=== PATIENT | female | born 1995 | race African-American/Black ===

== ENCOUNTER 2017-11-21 20:22 | Emergency (ER) | payer SELFPAY ==
[~2017-11-21] VITALS: Ht 157.5 cm; Wt 50.0 kg
[2017-11-21 20:26] VITALS: BP 132/60; PULSE 94; RESP 14; TEMP 98.3; O2SAT 100
--- NOTE | 2017-11-21 20:50 | PD ---
HPI Chief Complaint: Medical Clearance Time Seen by Provider: 20:38 Travel History International Travel<30 days: No Contact w/Intl Traveler<30days: No Traveled to known affect area: No History of Present Illness HPI Patient comes to the emergency department complaining of possible . Patient states that she has had intermittent nausea over the past 2 weeks and feels that she may be . Denies anything making symptoms better or worse. Patient denies taking a home test. Patient reports her last period ended 2 days ago. Patient denies any pain anywhere, fevers, vaginal discharge, or other concerns. Patient states she does not use control which is why she is scared she may be . History Past Medical Histgory Medical History: Denies Significant Hx Tetanus Vaccination: < 5 Years LMP: 10/21/2017 Past Surgical History Surgical History: No Previous Surgery Social History Alcohol Use: Yes (socially) Tobacco Use: Yes Allergies-Medications (Allergen,Severity, Reaction): Coded Allergies: No Known Allergies (Unverified , 11/21/17) Review of Systems Except as stated in HPI: all other systems reviewed are Neg Physical Exam Narrative GENERAL: Well-developed, well nourished, in no acute distress, and non-ill appearing. SKIN: Focused skin assessment warm and dry. HEAD: Atraumatic. Normocephalic. EYES: Pupils equal and round. EOMI. No scleral icterus. No injection or drainage. ENT: No nasal bleeding or discharge. Mucous membranes pink and moist. NECK: Trachea midline. Supple. No nuclear rigidity. RESPIRATORY: No accessory muscle use. No respiratory distress. MUSCULOSKELETAL: No obvious deformities. No clubbing. No cyanosis. No edema. Full range of motion. NEUROLOGICAL: Awake and alert. No obvious cranial nerve deficits. Motor grossly within normal limits. Normal speech. PSYCHIATRIC: Appropriate mood and affect; insight and judgment normal. Data Data Last Documented VS Vital Signs Date Time Temp Pulse Resp B/P (MAP) Pulse Ox O2 Delivery O2 Flow Rate FiO2 11/21/17 20:26 98.3 94 14 132/60 (84) 100 MDM Medical Screen Exam Complete: Yes Emergency Medical Condition: No Narrative Course History and physical exam findings are not consistent with an emergent medical condition. She was given the option of receiving additional care, but has declined. Therefore the appropriate counseling recommendations were discussed with the patient and she was instructed to follow-up with her primary care physician as soon as possible for reevaluation. Patient was also informed of community resources from which she can obtain additional care. She is agreeable and verbalizes an understanding of the proposed plan. The patient states she will immediately return to the emergency department if her current complaints do not improve, new symptoms arise, or emergent condition develops. Patient ambulated out of the emergency department without difficulty. Primary Impression: Encounter for medical screening examination Disposition: [facility]-ED USE ONLY Condition: Stable Preston Grullon November 21, 2017 20:50
== END 2017-11-21 20:50 | disposition left against medical advice (07) ==
LOC: NEPK 20:22
DX: R11.0 Nausea (principal)
CPT/HCPCS: 99281